=== PATIENT | female | born 1980 | race Caucasian/White ===

== ENCOUNTER 2022-03-18 07:47 | Emergency (ER) | payer MEDICAID, SELFPAY ==
[2022-03-18 08:09] VITALS: BP 145/119; PULSE 115; RESP 18; TEMP 36.7; O2SAT 98; BMI 21.3
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
--- NOTE | 2022-03-18 09:24 | ED.NURSE ---
Pt refusing care. States I am feeling better now. Requests to leave. notified. AMA form signed.
--- NOTE | 2022-03-18 09:54 | ED.NURSE ---
Pt provided sweater and scrub pants, socks, and underwear. Ride called through [employer] to provide ride.
== END 2022-03-18 10:37 | disposition left against medical advice (07) ==
PROVIDERS: Emergency Provider Family Medicine
DX: R41.82 Altered mental status, unspecified (principal); Z53.29 Procedure and treatment not carried out because of patient's decision for other reasons
CPT/HCPCS: 80053; 80143; 80179; 80306; 81025; 82077; 83605; 85025; 87502; 87634; 87635; 99283; 99284